=== PATIENT | male | born 1945 | race Caucasian/White ===

== ENCOUNTER 2023-03-18 10:57 | Inpatient (IN) | payer MEDICARE ==
[~2023-03-18] VITALS: Ht 175.3 cm; Wt 93.3 kg
[2023-03-18 12:31] LABS: BASOPHILS # (AUTO) 0.02 K/uL (0.00-0.20); BASOPHILS % (AUTO) 0.4 % (0.0-5.0); EOSINOPHILS % (AUTO) 1.8 % (0.0-8.0); HEMATOCRIT 33.5 % (42-54); IMMATURE GRANULOCYTE ABSOLUTE 0.04 K/uL (0-1); LYMPHOCYTES # (AUTO) 0.6 K/uL (1.0-4.8); LYMPHOCYTES % (AUTO) 10.1 % (21.0-51.0); MEAN CORPUSCULAR HEMOGLOBIN 30.2 pg (27.0-33.0); MEAN CORPUSCULAR HGB CONC 32.2 g/dL (32.0-36.0); MEAN CORPUSCULAR VOLUME 93.6 fL (79-99); MONOCYTES # (AUTO) 0.5 K/uL (0.1-1.0); MONOCYTES % (AUTO) 8.3 % (3.0-13.0); NEUTROPHILS # (AUTO) 4.4 K/uL (1.8-7.7); NEUTROPHILS % (AUTO) 78.7 % (40.0-77.0); PLATELET COUNT (AUTO) 129 K/uL (130-400); RED BLOOD CELL COUNT(AUTO) 3.58 MIL/uL (4.50-6.20); WHITE BLOOD COUNT (AUTO) 5.6 K/uL (4.8-10.8)
[2023-03-18 12:46] LABS: CREATININE 1.2 mg/dL (0.5-1.5); POTASSIUM 3.7 mmol/L (3.5-5.1)
[2023-03-18 12:50] LABS: ALBUMIN 3.1 g/dL (3.5-5.0); BILIRUBIN,TOTAL 0.6 mg/dL (0.2-1.0); TOTAL PROTEIN, SERUM 6.5 g/dL (6.0-8.3)
[2023-03-18 12:55] LABS: APPEARANCE,URINE CLEAR (CLEAR); BILIRUBIN,URINE NEGATIVE (NEGATIVE); COLOR,URINE YELLOW (YELLOW); GLUCOSE, URINE (UA) NEGATIVE (NEGATIVE); KETONES,URINE NEGATIVE (NEGATIVE); LEUKOCYTE ESTERASE ,URINE NEGATIVE Leu/uL (NEGATIVE); NITRATE,URINE NEGATIVE (NEGATIVE); OCCULT BLOOD,URINE NEGATIVE (NEGATIVE); PROTEIN,URINE 100 mg/dL (NEGATIVE); UROBILINOGEN,URINE 0.2 mg/dL (0.2-1.0)
[2023-03-18 12:57] LABS: ADD UA MICROSCOPIC YES
[2023-03-18 12:59] LABS: MUCUS,URINE RARE LPF (None Seen)
[2023-03-18 13:26] LABS: B-TYPE NATRIURETIC PEPTIDE 617 pg/mL (0-100)
[2023-03-18] MEDS ORDERED: FUROSEMIDE 40MG VIAL IV ONE (15:00)
[2023-03-18 16:25] LABS: INFLUENZA TYPE A Negative For Type A (NEGATIVE); INFLUENZA TYPE B Negative For Type B (NEGATIVE)
[2023-03-18 16:26] LABS: COVID19 (SARS ANTIGEN RAPID) PRESUMPTIVE NEGATIVE (NEGATIVE)
[2023-03-18] MEDS ORDERED: NITROGLYCERIN 0.4 MG SL TAB SL PRN (17:00)
[2023-03-18] MEDS ORDERED: GUAIFENESIN-DM 200/20 MG 10 ML PO PRN (17:00)
[2023-03-18] MEDS ORDERED: ACETAMINOPHEN 325 MG TAB PO PRN (17:00)
[2023-03-18] MEDS ORDERED: ONDANSETRON 4MG INJ IV PRN (17:00)
[2023-03-18] MEDS ORDERED: LACTULOSE 20 GM/30 ML UDCUP PO PRN (17:00)
[2023-03-18] MEDS ORDERED: ACETAMINOPHEN WITH CODEINE 1 TAB TAB PO PRN (17:00)
[2023-03-18] MEDS ORDERED: HYDRALAZINE 20MG/ML VIAL IV PRN (17:00)
[2023-03-18] MEDS ORDERED: MAG/ALUM/SIMETH 30 ML UDCUP PO PRN (17:00)
[2023-03-18] MEDS ORDERED: LISI5TAB21 PO (17:21)
[2023-03-18] MEDS ORDERED: METO-391 PO (17:21)
[2023-03-18] MEDS ORDERED: AMLO2.5T2 PO (17:21)
[2023-03-18] MEDS ORDERED: AMIO200T68 PO (17:21)
[2023-03-18] MEDS ORDERED: APIX5TAB PO (17:21)
[2023-03-18] MEDS ORDERED: ROSU5TAB PO (17:21)
[2023-03-18] MEDS ORDERED: LEVO50CA4 PO (17:21)
[2023-03-18 19:59] VITALS: BP 138/66; PULSE 68; RESP 20
[2023-03-18] MEDS: FAMOTIDINE 20MG VIAL IV SCH (22:14)
[2023-03-18] MEDS: FUROSEMIDE 40MG VIAL IVP SCH (22:15)
[2023-03-19] MEDS: FUROSEMIDE 40MG VIAL IVP SCH ×2 (07:58→21:25)
[2023-03-19] MEDS: FAMOTIDINE 20MG VIAL IV SCH ×2 (07:58→21:25)
[2023-03-19 10:18] LABS: CREATININE 1.3 mg/dL (0.5-1.5); POTASSIUM 3.3 mmol/L (3.5-5.1)
[2023-03-19] MEDS ORDERED: POTASSIUM CHLORIDE 10% ELIXIR 20 MEQ/15 ML UDCUP PO PRN (11:00)
[2023-03-19] MEDS ORDERED: POTASSIUM CHLORIDE 20MEQ/100ML 100 ML IV PRN (11:00)
[2023-03-19] MEDS: KCL 20 MEQ ERTAB PO PRN ×3 (13:39→21:27)
[2023-03-19] MEDS: METOPROLOL SUCCINATE 50 MG TAB.SR.24H PO SCH (14:25)
[2023-03-19] MEDS: AMIODARONE 200 MG TABLET PO SCH (14:25)
[2023-03-19] MEDS: AMLODIPINE 2.5 MG TAB PO SCH (14:25)
[2023-03-19] MEDS ORDERED: LISINOPRIL 5 MG TABLET PO ONE (15:00)
[2023-03-19 17:20] VITALS: BP 157/79; PULSE 63; RESP 18
[2023-03-19 19:30] VITALS: O2SAT 95
[2023-03-19 19:34] VITALS: BP 138/66; PULSE 68; RESP 20
[2023-03-19] MEDS: APIXABAN 5 MG TABLET PO SCH (21:25)
[2023-03-19 23:31] VITALS: BP 156/76; PULSE 64; RESP 18
[2023-03-20] VITALS (7 sets, daily range): BP systolic 130–149; BP diastolic 67–77; PULSE 57–74; RESP 18; O2SAT 95
[2023-03-20 04:31] LABS: CREATININE 1.6 mg/dL (0.5-1.5); POTASSIUM 3.8 mmol/L (3.5-5.1)
[2023-03-20] MEDS: LEVOTHYROXINE 50 MCG TABLET PO SCH (06:39)
[2023-03-20] MEDS: AMIODARONE 200 MG TABLET PO SCH (10:00)
[2023-03-20] MEDS: FAMOTIDINE 20MG VIAL IV SCH ×2 (10:00→20:27)
[2023-03-20] MEDS: APIXABAN 5 MG TABLET PO SCH ×2 (10:00→20:27)
[2023-03-20] MEDS: FUROSEMIDE 40MG VIAL IVP SCH (10:00)
[2023-03-20] MEDS: AMLODIPINE 2.5 MG TAB PO SCH (10:00)
[2023-03-20] MEDS: METOPROLOL SUCCINATE 50 MG TAB.SR.24H PO SCH (10:00)
[2023-03-20] MEDS: KCL 20 MEQ ERTAB PO PRN (10:02)
[2023-03-21 02:53] VITALS: BP 134/73; PULSE 61; RESP 18
[2023-03-21 03:39] LABS: CREATININE 1.5 mg/dL (0.5-1.5); POTASSIUM 3.8 mmol/L (3.5-5.1)
[2023-03-21] MEDS: LEVOTHYROXINE 50 MCG TABLET PO SCH (06:09)
[2023-03-21] MEDS ORDERED: FURO20TA4 PO (07:57)
[2023-03-21 08:00] VITALS: BP 137/67; PULSE 64; RESP 18
[2023-03-21 08:20] VITALS: O2SAT 96
[2023-03-21] MEDS ORDERED: FUROSEMIDE 40 MG TABLET PO SCH (09:00)
[2023-03-21] MEDS: AMIODARONE 200 MG TABLET PO SCH (09:01)
[2023-03-21] MEDS: APIXABAN 5 MG TABLET PO SCH (09:01)
[2023-03-21] MEDS: FAMOTIDINE 20MG VIAL IV SCH (09:02)
[2023-03-21] MEDS: METOPROLOL SUCCINATE 50 MG TAB.SR.24H PO SCH (09:02)
[2023-03-21] MEDS: AMLODIPINE 2.5 MG TAB PO SCH (09:02)
[2023-03-21 12:00] VITALS: BP 136/76; PULSE 62; RESP 19
[2023-03-21] MEDS ORDERED: NITR0.4T50 SL (14:41)
== END 2023-03-21 15:05 | disposition home or self-care (01) | DRG 291 ==
LOC: EDH 10:57 → EDHIP 16:51 → 4BH 03-19 17:20
PROVIDERS: ADMIT Internal Medicine; ATTEND Internal Medicine
DX: I11.0 Hypertensive heart disease with heart failure (principal); I50.31 Acute diastolic (congestive) heart failure; I48.20 Chronic atrial fibrillation, unspecified; Z20.822 Contact with and (suspected) exposure to COVID-19; E11.9 Type 2 diabetes mellitus without complications; I67.1 Cerebral aneurysm, nonruptured; E87.6 Hypokalemia; D64.9 Anemia, unspecified; D69.6 Thrombocytopenia, unspecified; E03.9 Hypothyroidism, unspecified; E78.00 Pure hypercholesterolemia, unspecified; I48.0 Paroxysmal atrial fibrillation; Z79.899 Other long term (current) drug therapy; Z95.0 Presence of cardiac pacemaker; Z79.01 Long term (current) use of anticoagulants
CPT/HCPCS: 36415; 71045; 78582; 80048; 80053; 81001; 83880; 84484; 85025; 85378; 87426; 87804; 93005; 93306; 93356; 93970; 96374; 96375; A9540; A9558; G0378; J1940; J3490